=== PATIENT | female | born 1935 | race Hispanic/Latino ===

== ENCOUNTER 2020-04-18 00:02 | Inpatient (IN) | payer MEDICARE ==
[~2020-04-18] VITALS: Ht 147.3 cm; Wt 68.2 kg
[2020-04-18] MEDS ORDERED: PANTOPRAZOLE 40 MG/VIAL ONE (00:24)
[2020-04-18] MEDS ORDERED: FAMOTIDINE/PF 20 MG/2 ML VIAL IV ONE (00:25)
[2020-04-18] MEDS ORDERED: FUROSEMIDE 10 MG/ML 2ML VIAL ONE ×2 (00:51→21:06)
[2020-04-18] MEDS ORDERED: ASPIRIN 325 MG TABLET ONE (00:51)
[2020-04-18] MEDS ORDERED: METOCLOPRAMIDE 10 MG/2 ML VIAL ONE (00:51)
[2020-04-18 01:06] LABS: ALBUMIN 3.5 g/dL (3.5-5.0); BILIRUBIN,TOTAL 0.9 mg/dL (0.2-1.0); CREATININE 0.9 mg/dL (0.5-1.5); POTASSIUM 3.6 mmol/L (3.5-5.1); TOTAL PROTEIN, SERUM 8.1 g/dL (6.0-8.3)
[2020-04-18 01:12] LABS: BASOPHILS % (AUTO) 0.2 % (0.0-5.0); EOSINOPHILS % (AUTO) 0.6 % (0.0-8.0); HEMATOCRIT 33.7 % (36-48); LYMPHOCYTES % (AUTO) 27.4 % (21.0-51.0); MEAN CORPUSCULAR HEMOGLOBIN 32.9 pg (27.0-33.0); MEAN CORPUSCULAR HGB CONC 35.3 g/dL (32.0-36.0); MEAN CORPUSCULAR VOLUME 93.1 fL (79-99); MONOCYTES % (AUTO) 7.7 % (3.0-13.0); NEUTROPHILS % (AUTO) 63.6 % (40.0-77.0); PLATELET COUNT (AUTO) 182 K/uL (130-400); RED BLOOD CELL COUNT(AUTO) 3.62 MIL/uL (4.00-5.50); RED CELL DISTRIBUTION WIDTH 12.4 % (11.0-15.5); WHITE BLOOD COUNT (AUTO) 6.7 K/uL (4.8-10.8)
[2020-04-18] MEDS ORDERED: NITROGLYCERIN 0.4 MG SL TAB SL ONE (01:14)
[2020-04-18 01:19] LABS: INR 0.92 (0.85-1.15); PARTIAL THROMBOPLASTIN TIME 28.9 SEC (26.3-35.5)
[2020-04-18] MEDS ORDERED: ONDANSETRON HCL 4 MG/2 ML VIAL ONE (02:02)
[2020-04-18] MEDS ORDERED: MORPHINE SULFATE 2 MG/ML 1ML SYG ONE (02:02)
[2020-04-18 02:07] LABS: APPEARANCE,URINE Cloudy (CLEAR); BILIRUBIN,URINE Negative (NEGATIVE); COLOR,URINE Yellow (YELLOW); GLUCOSE, URINE (UA) Negative (NEGATIVE); KETONES,URINE Negative (NEGATIVE); LEUKOCYTE ESTERASE ,URINE Trace (NEGATIVE); NITRATE,URINE Negative (NEGATIVE); OCCULT BLOOD,URINE Small (NEGATIVE); PH,URINE 5.5 (5.0-8.0); PROTEIN,URINE POS 1+ mg/dL (NEGATIVE)
[2020-04-18 02:15] LABS: BACTERIA,URINE Moderate /HPF (None Seen); RBC,URINE None Seen /HPF (0-1); SQUAMOUS EPITHELIAL CELL,UR Rare /HPF (0-2); WBC,URINE 0-1 /HPF (0-1)
[2020-04-18] MEDS ORDERED: LACTULOSE 20 GM/30 ML UDCUP PO PRN (02:30)
[2020-04-18] MEDS ORDERED: HYDRALAZINE HCL 20 MG/ML VIAL IV PRN (02:30)
[2020-04-18] MEDS ORDERED: ONDANSETRON HCL 4 MG/2 ML VIAL IV PRN (02:30)
[2020-04-18] MEDS ORDERED: ACETAMINOPHEN 325 MG TAB PO PRN ×2 (02:30)
[2020-04-18 03:05] LABS: HEMOGLOBIN A1C 6.4 % (4.0-6.0)
[2020-04-18 03:23] LABS: THYROID STIMULATING HORMONE 1.34 uIU/mL (0.36-3.74)
--- NOTE | 2020-04-18 04:00 | NUR ---
Admission Assessment Received pt from ED with daughter Zena soliman, per cesilia.Routine admission assessment done, plan of care discuss, updated daughter with all lab works at this time, radiologic studies no official reading result, pending. Per daughter stated pt is oriented x3, ambulates with a walker at home, uses briefs as sometimes would have accident since pt is on Lasix, refused Flu & Pneumonia vaccination as pt has never had it at all, home medications obtained & recorded, pt calm & collect at this time. Per daughter pt would panic when not able to see familiar faces, but since pt is sleeping, per daughter she will be leaving & be back by around 0800 or 0900. Pt currently denies any discomfort.
[2020-04-18 04:05] VITALS: BP 155/88
[2020-04-18] MEDS ORDERED: FURO20TA4 PO (04:09)
[2020-04-18] MEDS ORDERED: ESOM40CA54 PO (04:09)
[2020-04-18] MEDS ORDERED: FOLI1TAB85 PO (04:09)
[2020-04-18] MEDS ORDERED: GABA-533 PO (04:09)
[2020-04-18] MEDS ORDERED: LOSA100T58 PO (04:09)
[2020-04-18] MEDS ORDERED: SIMV-46 PO (04:09)
[2020-04-18] MEDS ORDERED: LORA10TA7 PO (04:09)
[2020-04-18] MEDS: INSULIN HUMULIN R 100 UNIT/ML 3ML SQ SCH ×4 (05:39→21:00)
--- NOTE | 2020-04-18 06:00 | NUR ---
Re: CT of the abdomen/pelvis security systems technician Joe came to verify re: ordered CT of the abdomen/pelvis with contrast that was ordered in ED & still pending. Since this was not reported to me by Ted BEST, checked order noted in place, phoned daughter Zena, no answer, unable to leave VM as it's not set up, I will notify incoming shift of this issue, pending consent. Pt at this time has been NPO as ordered.
[2020-04-18 08:21] VITALS: BP 105/63
[2020-04-18] MEDS: GABAPENTIN 300 MG CAPSULE PO SCH ×3 (09:00→21:13)
[2020-04-18] MEDS: GABAPENTIN 100 MG CAPSULE PO SCH ×3 (09:00→21:13)
[2020-04-18] MEDS: LOSARTAN 100 MG TABLET PO SCH (09:00)
[2020-04-18] MEDS: ASPIRIN 325 MG TABLET PO SCH (09:00)
[2020-04-18] MEDS: SODIUM CHLORIDE 0.9% 1000ML 1,000 ML IV SCH ×2 (10:51→20:55)
[2020-04-18] MEDS: PANTOPRAZOLE SODIUM 40 MG TABLET.DR PO SCH (10:51)
[2020-04-18 11:37] VITALS: BP 113/83
[2020-04-18] MEDS: CEFTRIAXONE SODIUM 1 GM IVP SCH (13:11)
[2020-04-18 13:21] LABS: CREATININE 0.9 mg/dL (0.5-1.5); POTASSIUM 4.2 mmol/L (3.5-5.1)
[2020-04-18 16:00] VITALS: BP 114/50
--- NOTE | 2020-04-18 16:50 | NUR ---
INITIAL: Met w pt and dtr @ the bedside. Pt w confusion. Per dtr, prior to admission pt was using a rollator for ambulation. She required assistance w ADLS. SHe has at home a cane and sh chair. Zena mentions that [facility] at this time if is for pt to [facility]. She mentions that she will be able to assist pt as needed. CM to continue to follow and wait for Md recommendations. Addendum: 04/18/20 at 1652 by MIRANDA LINDA CM Amended: Links added.
[2020-04-18] MEDS: SIMVASTATIN 20 MG TABLET PO SCH (20:56)
[2020-04-18] MEDS ORDERED: FUROSEMIDE 10 MG/ML 2ML VIAL IV SCH (21:15)
[2020-04-18 21:45] VITALS: BP 118/57
--- NOTE | 2020-04-18 22:35 | NUR ---
2057: I paged Regina KNOWLES via answering service. 2108: Regina KNOWLES returned call informed him of change in patient's status. Patient with wheezing audible with stetascope. Informed him patient had been started on IVF of normal saline due to pateint's low sodium at 127. I received Orders to stop IVF, administer Lasix 20 mg IV now, and get a stat chest X ray. 2234: Regina KNOWLES came by to check on the patient, who had stopped wheezing after receiving lasix IV. He stated patient sounded better. Orders received to start normal saline at 50 mls/hr in the morning. Also to let Dr. Hansen know what happened and about the normal saline decrease to 50 mls/ hr.
[2020-04-18 23:58] VITALS: BP 122/56
--- NOTE | 2020-04-19 02:45 | NUR ---
0140: Patient's bed alarm went off checked on her, attempting to get out of bed. Fixed her back in bed and reoriented her to place and time, and reason why she was here. Patient's bed alarm placed back in use. 0150: I checked on patient, noted her attempting to bet out of bed again. Checked her diaper, she was wet, so incontinent care rendered. Patient fixed back in bed, she turned on her rt side. Bed alarm placed back in use. 0200: Patient yelling and bed alarm going off. Check on patient again attempting to get out of bed Patient moved to room 403 right in front of nurses station. Light turned on and tv, patient seem to be comforted patient asleep within a few minutes. Bed alarm placed in use.
[2020-04-19 04:00] VITALS: BP 121/90
[2020-04-19 05:58] LABS: BASOPHILS % (AUTO) 0.3 % (0.0-5.0); EOSINOPHILS % (AUTO) 0.7 % (0.0-8.0); HEMATOCRIT 30.5 % (36-48); LYMPHOCYTES % (AUTO) 22.5 % (21.0-51.0); MEAN CORPUSCULAR HEMOGLOBIN 32.3 pg (27.0-33.0); MEAN CORPUSCULAR HGB CONC 33.4 g/dL (32.0-36.0); MEAN CORPUSCULAR VOLUME 96.5 fL (79-99); MONOCYTES % (AUTO) 10.2 % (3.0-13.0); NEUTROPHILS % (AUTO) 66.2 % (40.0-77.0); PLATELET COUNT (AUTO) 163 K/uL (130-400); RED BLOOD CELL COUNT(AUTO) 3.16 MIL/uL (4.00-5.50); RED CELL DISTRIBUTION WIDTH 12.6 % (11.0-15.5); WHITE BLOOD COUNT (AUTO) 6.8 K/uL (4.8-10.8)
[2020-04-19 06:18] LABS: CREATININE 1.1 mg/dL (0.5-1.5); POTASSIUM 3.7 mmol/L (3.5-5.1)
[2020-04-19] MEDS: PANTOPRAZOLE SODIUM 40 MG TABLET.DR PO SCH (06:35)
[2020-04-19] MEDS: INSULIN HUMULIN R 100 UNIT/ML 3ML SQ SCH ×4 (06:35→20:06)
[2020-04-19 07:38] VITALS: BP 136/69
[2020-04-19] MEDS: SODIUM CHLORIDE 0.9% 1000ML 1,000 ML IV SCH (08:00)
--- NOTE | 2020-04-19 09:00 | NUR ---
FLUIDS PER DR REDDY, STATES TO HOLD FLUIDS FOR NOW
[2020-04-19] MEDS: ASPIRIN 325 MG TABLET PO SCH (09:49)
[2020-04-19] MEDS: GABAPENTIN 300 MG CAPSULE PO SCH ×3 (09:49→20:06)
[2020-04-19] MEDS: GABAPENTIN 100 MG CAPSULE PO SCH ×3 (09:49→20:05)
[2020-04-19] MEDS: LOSARTAN 100 MG TABLET PO SCH (09:49)
[2020-04-19 11:53] VITALS: BP 126/55
--- NOTE | 2020-04-19 12:45 | NUR ---
DR VALLE AWARE OF PULMONARY CONSULT, STATES WILL SEE PT
[2020-04-19] MEDS: CEFTRIAXONE SODIUM 1 GM IVP SCH (14:48)
[2020-04-19 16:27] VITALS: BP 140/69
[2020-04-19 20:05] VITALS: BP 142/74
[2020-04-19] MEDS: SIMVASTATIN 20 MG TABLET PO SCH (20:06)
[2020-04-20] VITALS (8 sets, daily range): BP systolic 131–166; BP diastolic 68–96
[2020-04-20] MEDS: SODIUM CHLORIDE 0.9% 1000ML 1,000 ML IV SCH (03:10)
[2020-04-20 06:03] LABS: HEMATOCRIT 33.2 % (36-48); MEAN CORPUSCULAR HEMOGLOBIN 32.4 pg (27.0-33.0); MEAN CORPUSCULAR HGB CONC 33.7 g/dL (32.0-36.0); RED BLOOD CELL COUNT(AUTO) 3.46 MIL/uL (4.00-5.50); RED CELL DISTRIBUTION WIDTH 12.8 % (11.0-15.5); WHITE BLOOD COUNT (AUTO) 6.3 K/uL (4.8-10.8)
[2020-04-20] MEDS: INSULIN HUMULIN R 100 UNIT/ML 3ML SQ SCH ×4 (06:19→21:00)
[2020-04-20] MEDS: PANTOPRAZOLE SODIUM 40 MG TABLET.DR PO SCH (06:19)
[2020-04-20 06:27] LABS: POTASSIUM 3.8 mmol/L (3.5-5.1); THYROID STIMULATING HORMONE 0.46 uIU/mL (0.36-3.74)
[2020-04-20] MEDS ORDERED: MEROPENEM 500 MG VIAL IVP SCH (08:15)
--- NOTE | 2020-04-20 08:15 | NUR ---
AM ASSESSMENT PT SITTING IN CHAIR, RESTING. PT'S DAUGHTER @ BEDSIDE. A/O X 3; FORGETFUL @ TIMES. SPA SPEAKING ONLY. NO SOB. NO DISTRESS NOTED. DENIES CHEST PAIN OR DISCOMFORT. DENIES PALPITATIONS. TELE: SR. DENIES N/V AND/OR DIARRHEA. C/O EPIGASTRIC PAIN; MD TO BE NOTIFIED. UP W/ASSISTANCE. INSTRUCTED TO CALL FOR ASSISTANCE. CALL JOSE ALBERTO W/IN REACH.
[2020-04-20] MEDS ORDERED: CEFTRIAXONE SODIUM 1 GM IVP SCH (09:00)
[2020-04-20] MEDS: GABAPENTIN 300 MG CAPSULE PO SCH ×3 (09:07→21:40)
[2020-04-20] MEDS: ASPIRIN 81 MG EC TAB PO SCH (09:08)
[2020-04-20] MEDS: GABAPENTIN 100 MG CAPSULE PO SCH ×3 (09:08→21:41)
[2020-04-20] MEDS: LOSARTAN 100 MG TABLET PO SCH (09:09)
[2020-04-20] MEDS: MEROPENEM 500 MG VIAL IVP SCH ×3 (09:10→21:40)
[2020-04-20 11:03] LABS: ALBUMIN 3.2 g/dL (3.5-5.0); BILIRUBIN,TOTAL 0.5 mg/dL (0.2-1.0); CREATININE 1.1 mg/dL (0.5-1.5); POTASSIUM 4.4 mmol/L (3.5-5.1)
[2020-04-20] MEDS: KETOROLAC TROMETHAMINE 15MG/ML IV PRN (12:36)
[2020-04-20] MEDS ORDERED: PHARMACY COMMUNICATION MISC SCH (13:30)
[2020-04-20] MEDS ORDERED: COMPOUND IV MISC 1 EACH IVSOLN MISC PRN (13:45)
[2020-04-20] MEDS: ACETAMINOPHEN-CODEINE 300/30MG TAB PO PRN (13:59)
[2020-04-20] MEDS ORDERED: SODIUM CHLORIDE 0.9% 50 ML IV ONE (21:36)
[2020-04-20] MEDS: IRON SUCROSE COMPLEX 300 MG in SODIUM CHLORIDE 0.9% 250 ML IVP SCH (21:40)
[2020-04-20] MEDS: SIMVASTATIN 20 MG TABLET PO SCH (21:41)
[2020-04-21] VITALS (7 sets, daily range): BP systolic 133–166; BP diastolic 73–93
[2020-04-21] MEDS: SODIUM CHLORIDE 0.9% 1000ML 1,000 ML IV SCH
[2020-04-21] MEDS ORDERED: SODIUM CHLORIDE 0.9% 50 ML IV ONE (04:32)
[2020-04-21] MEDS: MEROPENEM 500 MG VIAL IVP SCH ×3 (05:12→22:35)
[2020-04-21 05:38] LABS: HEMATOCRIT 33.7 % (36-48); MEAN CORPUSCULAR HEMOGLOBIN 32.4 pg (27.0-33.0); MEAN CORPUSCULAR HGB CONC 33.5 g/dL (32.0-36.0); MEAN CORPUSCULAR VOLUME 96.6 fL (79-99); RED BLOOD CELL COUNT(AUTO) 3.49 MIL/uL (4.00-5.50); RED CELL DISTRIBUTION WIDTH 12.8 % (11.0-15.5); WHITE BLOOD COUNT (AUTO) 5.6 K/uL (4.8-10.8)
[2020-04-21 05:52] LABS: INR 0.94 (0.85-1.15); PARTIAL THROMBOPLASTIN TIME 34.2 SEC (26.3-35.5); PROTHROMBIN TIME 10.2 SEC (9.6-11.6)
[2020-04-21 06:02] LABS: CREATININE 0.8 mg/dL (0.5-1.5); POTASSIUM 4.3 mmol/L (3.5-5.1)
[2020-04-21] MEDS: INSULIN HUMULIN R 100 UNIT/ML 3ML SQ SCH (06:08)
[2020-04-21] MEDS: PANTOPRAZOLE SODIUM 40 MG TABLET.DR PO SCH (06:18)
[2020-04-21] MEDS: GABAPENTIN 100 MG CAPSULE PO SCH ×3 (09:38→19:55)
[2020-04-21] MEDS: GABAPENTIN 300 MG CAPSULE PO SCH ×3 (09:38→19:55)
[2020-04-21] MEDS: ASPIRIN 81 MG EC TAB PO SCH (09:38)
[2020-04-21] MEDS: LOSARTAN 100 MG TABLET PO SCH (09:39)
--- NOTE | 2020-04-21 11:55 | NUR ---
a rt basilic picc line was inserted via rt basilic vein using [employer] technician. unable to obtain bulls eyes, chest x ray ordered. pt. tolerated procedure without c/o distress . internal cath at 34 cm ,external cath 2 cm,total cath 36cm. no trauma noted. Addendum: 04/21/20 at 1216 by RAHEL ESTRADA RN RN Amended: Links added.
[2020-04-21] MEDS: ACETAMINOPHEN-CODEINE 300/30MG TAB PO PRN (19:32)
[2020-04-21] MEDS: SIMVASTATIN 20 MG TABLET PO SCH (19:56)
[2020-04-21] MEDS: IRON SUCROSE COMPLEX 300 MG in SODIUM CHLORIDE 0.9% 250 ML IVP SCH (19:56)
--- NOTE | 2020-04-21 20:00 | NUR ---
ASSESSMENT NOTE PATIENT AWAKE, ALERT, OX3, NO SOB, NO C/O PAIN AT THIS TIME, REINFORCE FLUID RESTRICTION 1.5 LITERS, TEACH PATIENT PLAN OF CARE AND EXPECTED OUTCOME, PATIENT VERBALIZES UNDERSTANDING VIA TEACH BACK
[2020-04-22] VITALS: BP 126/76
[2020-04-22 04:00] VITALS: BP 128/73
[2020-04-22] MEDS: SODIUM CHLORIDE 0.9% 1000ML 1,000 ML IV SCH (04:07)
[2020-04-22 04:42] LABS: HEMATOCRIT 32.4 % (36-48); MEAN CORPUSCULAR HEMOGLOBIN 32.9 pg (27.0-33.0); RED BLOOD CELL COUNT(AUTO) 3.34 MIL/uL (4.00-5.50); RED CELL DISTRIBUTION WIDTH 13.1 % (11.0-15.5)
[2020-04-22 05:04] LABS: CREATININE 0.7 mg/dL (0.5-1.5); POTASSIUM 4.8 mmol/L (3.5-5.1)
[2020-04-22] MEDS: MEROPENEM 500 MG VIAL IVP SCH ×3 (05:10→20:52)
[2020-04-22] MEDS: PANTOPRAZOLE SODIUM 40 MG TABLET.DR PO SCH (06:07)
[2020-04-22 08:00] VITALS: BP 172/100
--- NOTE | 2020-04-22 09:34 | NUR ---
recd trigger to discuss dcp w dtr- met at bedside, discussed dc needs, depend on final ABX RX, will follow up as soon at that is recd, verbalized understanding Addendum: 04/22/20 at 0937 by WAYNE PEPPER RN CM Amended: Links added.
[2020-04-22] MEDS: GABAPENTIN 100 MG CAPSULE PO SCH ×3 (09:47→20:53)
[2020-04-22] MEDS: ASPIRIN 81 MG EC TAB PO SCH (09:49)
[2020-04-22] MEDS: LOSARTAN 100 MG TABLET PO SCH (09:49)
[2020-04-22] MEDS: GABAPENTIN 300 MG CAPSULE PO SCH ×3 (09:49→20:53)
[2020-04-22] MEDS: ACETAMINOPHEN-CODEINE 300/30MG TAB PO PRN (09:52)
[2020-04-22] MEDS ORDERED: AMLODIPINE BESYLATE 5 MG TAB PO SCH (11:15)
[2020-04-22] MEDS: PANTOPRAZOLE 40 MG/VIAL IVP SCH ×2 (11:30→20:52)
[2020-04-22 12:00] VITALS: BP 159/78
[2020-04-22] MEDS ORDERED: TRAMADOL HCL 50 MG TABLET PO ONE (14:07)
[2020-04-22 16:00] VITALS: BP 152/74
[2020-04-22] MEDS ORDERED: FUROSEMIDE 10 MG/ML 4ML VIAL IVP SCH (16:30)
[2020-04-22] MEDS ORDERED: TRAMADOL HCL 50 MG TABLET ONE (17:35)
[2020-04-22] MEDS: BUDESONIDE 0.5 MG/2 ML INH IH SCH (18:00)
[2020-04-22] MEDS: IPRATROPIUM 0.5 MG/2.5 ML INH IH SCH (18:00)
[2020-04-22] MEDS ORDERED: ALBUTEROL SULFATE 0.083% 2.5 MG/3 ML INH IH SCH (18:00)
[2020-04-22] MEDS: KETOROLAC TROMETHAMINE 15MG/ML IV PRN (18:39)
[2020-04-22 20:00] VITALS: BP 148/82
[2020-04-22] MEDS: SIMVASTATIN 20 MG TABLET PO SCH (20:52)
[2020-04-22] MEDS: IRON SUCROSE COMPLEX 300 MG in SODIUM CHLORIDE 0.9% 250 ML IVP SCH (20:52)
[2020-04-22] MEDS: ALBUTEROL INHALER 90MCG/INH IH SCH (23:13)
[2020-04-22] MEDS: FUROSEMIDE 10 MG/ML 2ML VIAL IVP SCH (23:13)
[2020-04-23] VITALS (9 sets, daily range): BP systolic 132–157; BP diastolic 64–87
[2020-04-23] MEDS: MEROPENEM 500 MG VIAL IVP SCH ×3 (05:11→21:37)
[2020-04-23] MEDS: FUROSEMIDE 10 MG/ML 2ML VIAL IVP SCH ×3 (05:12→21:41)
[2020-04-23] MEDS: ALBUTEROL INHALER 90MCG/INH IH SCH ×3 (05:12→17:11)
[2020-04-23] MEDS: IPRATROPIUM 0.5 MG/2.5 ML INH IH SCH ×3 (05:31→12:00)
[2020-04-23] MEDS: BUDESONIDE 0.5 MG/2 ML INH IH SCH (05:32)
[2020-04-23 06:26] LABS: BASOPHILS % (AUTO) 0.3 % (0.0-5.0); EOSINOPHILS % (AUTO) 2.7 % (0.0-8.0); HEMATOCRIT 34.3 % (36-48); LYMPHOCYTES % (AUTO) 26.2 % (21.0-51.0); MEAN CORPUSCULAR HEMOGLOBIN 32.9 pg (27.0-33.0); MEAN CORPUSCULAR HGB CONC 33.2 g/dL (32.0-36.0); MEAN CORPUSCULAR VOLUME 98.8 fL (79-99); MONOCYTES % (AUTO) 9.6 % (3.0-13.0); NEUTROPHILS % (AUTO) 60.9 % (40.0-77.0); PLATELET COUNT (AUTO) 185 K/uL (130-400); RED BLOOD CELL COUNT(AUTO) 3.47 MIL/uL (4.00-5.50); RED CELL DISTRIBUTION WIDTH 13.2 % (11.0-15.5); WHITE BLOOD COUNT (AUTO) 6.4 K/uL (4.8-10.8)
[2020-04-23 06:38] LABS: CREATININE 0.9 mg/dL (0.5-1.5)
[2020-04-23 06:57] LABS: B-TYPE NATRIURETIC PEPTIDE 249 pg/mL (0-100)
[2020-04-23] MEDS: ASPIRIN 81 MG EC TAB PO SCH (09:00)
[2020-04-23] MEDS: GABAPENTIN 300 MG CAPSULE PO SCH ×3 (09:00→20:22)
[2020-04-23] MEDS: PANTOPRAZOLE 40 MG/VIAL IVP SCH ×3 (09:00→20:22)
[2020-04-23] MEDS: GABAPENTIN 100 MG CAPSULE PO SCH ×3 (09:00→20:22)
[2020-04-23] MEDS: LOSARTAN 100 MG TABLET PO SCH (09:00)
[2020-04-23] MEDS ORDERED: KETOROLAC TROMETHAMINE 30MG/ML ONE (10:00)
[2020-04-23] MEDS ORDERED: KETOROLAC TROMETHAMINE 30MG/ML IV PRN (14:15)
[2020-04-23 14:53] LABS: TROPONIN I 0.08 ng/mL (0.00-0.06)
[2020-04-23] MEDS ORDERED: HYDROMORPHONE HCL 0.5 MG/0.5 ML ML IVP PRN (17:00)
[2020-04-23] MEDS ORDERED: HYDROMORPHONE HCL 0.5 MG/0.5 ML ML ONE (17:02)
[2020-04-23] MEDS: SIMVASTATIN 20 MG TABLET PO SCH (20:22)
[2020-04-24 03:56] VITALS: BP 141/73
[2020-04-24] MEDS: MEROPENEM 500 MG VIAL IVP SCH ×3 (05:20→20:01)
[2020-04-24] MEDS: FUROSEMIDE 10 MG/ML 2ML VIAL IVP SCH ×3 (05:20→20:00)
[2020-04-24 06:00] LABS: HEMATOCRIT 35.6 % (36-48); MEAN CORPUSCULAR HEMOGLOBIN 32.5 pg (27.0-33.0); MEAN CORPUSCULAR HGB CONC 33.4 g/dL (32.0-36.0); MEAN CORPUSCULAR VOLUME 97.3 fL (79-99); RED BLOOD CELL COUNT(AUTO) 3.66 MIL/uL (4.00-5.50); RED CELL DISTRIBUTION WIDTH 13.2 % (11.0-15.5); WHITE BLOOD COUNT (AUTO) 7.1 K/uL (4.8-10.8)
[2020-04-24] MEDS: ALBUTEROL INHALER 90MCG/INH IH SCH ×4 (06:00→18:00)
[2020-04-24 06:08] LABS: POTASSIUM 3.9 mmol/L (3.5-5.1)
[2020-04-24 08:32] VITALS: BP 150/89
[2020-04-24] MEDS: PANTOPRAZOLE 40 MG/VIAL IVP SCH ×2 (10:21→20:01)
[2020-04-24] MEDS: ASPIRIN 81 MG EC TAB PO SCH (10:22)
[2020-04-24] MEDS: GABAPENTIN 300 MG CAPSULE PO SCH ×3 (10:22→20:00)
[2020-04-24] MEDS: GABAPENTIN 100 MG CAPSULE PO SCH ×3 (10:22→20:01)
[2020-04-24] MEDS: LOSARTAN 100 MG TABLET PO SCH (10:22)
[2020-04-24 12:34] VITALS: BP 146/78
[2020-04-24 16:00] VITALS: BP 137/81
[2020-04-24 20:00] VITALS: BP 136/62
[2020-04-24] MEDS: SIMVASTATIN 20 MG TABLET PO SCH (20:01)
[2020-04-24] MEDS: ENOXAPARIN SODIUM 30 MG/0.3 ML SQ SCH (20:02)
[2020-04-25] VITALS (20 sets, daily range): BP systolic 104–165; BP diastolic 52–87
[2020-04-25] MEDS: MEROPENEM 500 MG VIAL IVP SCH ×3 (05:29→21:23)
[2020-04-25] MEDS: FUROSEMIDE 10 MG/ML 2ML VIAL IVP SCH ×2 (05:30→14:00)
[2020-04-25 06:05] LABS: CREATININE 1.2 mg/dL (0.5-1.5); MAGNESIUM 1.7 mg/dL (1.80-2.40)
[2020-04-25] MEDS: GABAPENTIN 300 MG CAPSULE PO SCH ×2 (09:00→12:29)
[2020-04-25] MEDS: GABAPENTIN 100 MG CAPSULE PO SCH ×2 (09:00→12:29)
[2020-04-25] MEDS: ENOXAPARIN SODIUM 30 MG/0.3 ML SQ SCH (09:00)
--- NOTE | 2020-04-25 09:25 | NUR ---
HOLD TODAY SECONDARY TO PATIENT SEDATED POST EGD. Addendum: 04/25/20 at 1210 by LUKE MOORE PT Amended: Links added.
[2020-04-25] MEDS: PANTOPRAZOLE 40 MG/VIAL IVP SCH ×2 (10:57→19:52)
[2020-04-25] MEDS: LIPASE/PROTEASE/AMYLASE 5000/17000/24000 PO SCH ×2 (10:57→16:46)
[2020-04-25] MEDS: PREGABALIN 25 MG CAP PO SCH ×2 (10:58→19:51)
[2020-04-25] MEDS: ASPIRIN 81 MG EC TAB PO SCH (10:58)
[2020-04-25] MEDS: LOSARTAN 100 MG TABLET PO SCH (10:58)
[2020-04-25] MEDS: ALBUTEROL INHALER 90MCG/INH IH SCH ×2 (12:00→16:47)
[2020-04-25] MEDS ORDERED: MAGNESIUM 2GM PREMIX 50ML 50 ML IV PRN (14:45)
[2020-04-25] MEDS: SIMVASTATIN 20 MG TABLET PO SCH (19:51)
[2020-04-26] VITALS: BP 139/50
[2020-04-26] MEDS ORDERED: ALBUTEROL INHALER 90MCG/INH IH PRN (00:30)
[2020-04-26] MEDS ORDERED: IPRATROPIUM 0.5 MG/2.5 ML INH IH PRN (03:00)
[2020-04-26 04:00] VITALS: BP 135/73
--- NOTE | 2020-04-26 05:00 | NUR ---
ROUNDS PATIENT UP TO CHAIR, DAUGHTER AT BEDSIDE. NO COMPLAINTS OF PAIN VOICED AT THIS TIME. RESP EVEN AND UNLABORED. NO SOB NOTED. VITALS STABLE. AFEBRILE. TOTAL CARE RENDERED Q2H AND PRN. BM NOTED. NO SIGNS OF DISTRESS NOTED. CALL LIGHT WITHIN REACH. WILL CONTINUE TO BE OBSERVED. Addendum: 04/26/20 at 0633 by WISAM DURAN RN RN Amended: Links added.
[2020-04-26] MEDS: MEROPENEM 500 MG VIAL IVP SCH ×2 (05:18→14:00)
[2020-04-26] MEDS: LIPASE/PROTEASE/AMYLASE 5000/17000/24000 PO SCH ×3 (05:19→16:00)
[2020-04-26 06:10] LABS: HEMATOCRIT 37.1 % (36-48); MEAN CORPUSCULAR HGB CONC 33.2 g/dL (32.0-36.0); MEAN CORPUSCULAR VOLUME 99.5 fL (79-99); RED BLOOD CELL COUNT(AUTO) 3.73 MIL/uL (4.00-5.50); RED CELL DISTRIBUTION WIDTH 13.6 % (11.0-15.5)
[2020-04-26 06:23] LABS: CREATININE 1.2 mg/dL (0.5-1.5); MAGNESIUM 2.6 mg/dL (1.80-2.40); POTASSIUM 3.8 mmol/L (3.5-5.1)
[2020-04-26 08:00] VITALS: BP 136/82
[2020-04-26] MEDS: ENOXAPARIN SODIUM 30 MG/0.3 ML SQ SCH (09:36)
[2020-04-26] MEDS: PANTOPRAZOLE 40 MG/VIAL IVP SCH (09:36)
[2020-04-26] MEDS: PREGABALIN 25 MG CAP PO SCH (09:37)
[2020-04-26] MEDS: ASPIRIN 81 MG EC TAB PO SCH (09:37)
[2020-04-26] MEDS: LOSARTAN 100 MG TABLET PO SCH (09:38)
[2020-04-26] MEDS ORDERED: FLUTICASONE/VILANTEROL 1 EACH BLST.W.DEV IH SCH (11:00)
--- NOTE | 2020-04-26 11:00 | NUR ---
CM Note: [facility] pending approval CM met with pt and daughter in room, discussed MD recommendations, pt will need 5 more days abx iv. Daughter agreeable, signed KENNETH for [facility]. Faxed order, clinicals, PAS[facility], Covid transfer form and result from 04/22, confirmation received. Spoke to Breonna rothman/JIMMIE, aware dcp once approved, will come eval pt. Pt pending approval and acceptance. EMS filled out, request sent to [facility] in case needed, pending auth. Primary nurse Yaneli BEST aware. CM to continue to follow up.
[2020-04-26] MEDS ORDERED: ACETAMINOPHEN-CODEINE 300/30MG TAB PO PRN (11:15)
[2020-04-26 12:00] VITALS: BP 145/76
[2020-04-26] MEDS ORDERED: FLUT1BLS IH (12:58)
[2020-04-26] MEDS ORDERED: ALBUHFA IH (12:58)
[2020-04-26] MEDS ORDERED: Lipase/Protease/Amylase PO (12:58)
[2020-04-26] MEDS ORDERED: PREG25 PO (12:58)
--- NOTE | 2020-04-26 14:07 | NUR ---
i called at 1415 to make an appointment with pt's pcp nasrin mendoza but her office had message the office was closed and to call back later for appointment; I will instruct pt's daughter to call later and make a f/u appointment.
--- NOTE | 2020-04-26 15:00 | NUR ---
CM Note: HNR cancelled, dcp to home CM spoke to Dr Garcia, as per Dr Greene pt will no longer need abx iv on dc will dc to home instead. Per cancell HNR referal, dc order placed for home. Spoke to Breonna rothman/JIMMIE, cancelled referral. Primary nurse Yaneli BEST aware. CM to continue to follow up.
--- NOTE | 2020-04-26 16:04 | NUR ---
D/C PAPERS COMPLETE AND GIVEN TO PATIENT AND DAUGHTER AT BEDSIDE WHO TAKES CARE OF HER; I HAVE ALSO REMOVED THE PICC LINE IN PLACE IN RIGHT ARM ORDERED, TIP IS INTACT, NO RESISTANCE MET WHILE REMOVING LINE, NO BLEEDING NOTED AFTER REMOVAL, INSERTION SITE NORMAL IN APPEARANCE---PRESSURE HELD FOR 5 MINUTES THEN GAUZE DRESSING W/ OPSITE COVERING APPLIED; PT AND DAUGHTER STATED UNDERSTANDING OF ALL D/C INSTRUCTIONS INCLUDING TO CALL FOR F/U WITH BELKIS FIGUEROA, TAKE NEW MEDICATIONS PRESCRIBED AND SEE CHANGES MADE TO PREVIOUS HOME MEDICATIONS; TO CALL MD FOR ANY QUESTIONS OR CONCERNS AND CALL 911 OR GO TO ED FOR ANY LIFE THREATENING CONCERNS;
[2020-04-26] MEDS ORDERED: BUDESONIDE 0.5 MG/2 ML INH IH SCH (18:00)
[2020-04-27] MEDS ORDERED: PANTOPRAZOLE SODIUM 40 MG TABLET.DR PO SCH (09:00)
--- NOTE | 2020-04-28 11:29 | NUR ---
Transitional Care - Post Discharge Note Spoke with patient's daughter at number listed. As per daughter, patient is doing well. She states she has a follow up with her PCP tomorrow, and is taking discharge medications as ordered. The patient was unable to fill one medication ([id number]) because it is not covered by the insurance. The daughter of the patient will inquire with the PCP about this medication or something similar at follow up appointment. Addendum: 04/28/20 at 1134 by BEN DWYER Amended: Links added.
== END 2020-04-26 16:23 | disposition home or self-care (01) | DRG 438 ==
LOC: EDH 00:02 → EDHIP 02:21 → OBSVTOIN 02:21 → 4BH 03:57 → 4AH 04-19 02:06
PROVIDERS: ADMIT Internal Medicine; ATTEND Internal Medicine
PROC: 02HV33Z Insertion of Infusion Device into Superior Vena Cava, Percutaneous Approach (ICD-10-PCS; principal; 2020-04-21)
PROC: 0DB68ZX Excision of Stomach, Via Natural or Artificial Opening Endoscopic, Diagnostic (ICD-10-PCS; 2020-04-25)
DX: K85.90 Acute pancreatitis without necrosis or infection, unspecified (principal); J96.01 Acute respiratory failure with hypoxia; I21.A1 Myocardial infarction type 2; E87.1 Hypo-osmolality and hyponatremia; N39.0 Urinary tract infection, site not specified; J44.1 Chronic obstructive pulmonary disease with (acute) exacerbation; J98.11 Atelectasis; M48.54XA Collapsed vertebra, not elsewhere classified, thoracic region, initial encounter for fracture; Z16.12 Extended spectrum beta lactamase (ESBL) resistance; Z16.24 Resistance to multiple antibiotics; I50.22 Chronic systolic (congestive) heart failure; K86.1 Other chronic pancreatitis; I44.7 Left bundle-branch block, unspecified; K57.30 Diverticulosis of large intestine without perforation or abscess without bleeding; B96.20 Unspecified Escherichia coli [E. coli] as the cause of diseases classified elsewhere; D50.9 Iron deficiency anemia, unspecified; E11.9 Type 2 diabetes mellitus without complications; E66.9 Obesity, unspecified; E78.00 Pure hypercholesterolemia, unspecified; E78.5 Hyperlipidemia, unspecified; E86.1 Hypovolemia; F03.90 Unspecified dementia, unspecified severity, without behavioral disturbance, psychotic disturbance, mood disturbance, and anxiety; I25.10 Atherosclerotic heart disease of native coronary artery without angina pectoris; K42.9 Umbilical hernia without obstruction or gangrene; K44.9 Diaphragmatic hernia without obstruction or gangrene; K74.60 Unspecified cirrhosis of liver; K82.8 Other specified diseases of gallbladder; Z96.642 Presence of left artificial hip joint; R53.81 Other malaise; I08.3 Combined rheumatic disorders of mitral, aortic and tricuspid valves; M19.90 Unspecified osteoarthritis, unspecified site; N26.1 Atrophy of kidney (terminal); Z74.01 Bed confinement status; Z79.899 Other long term (current) drug therapy; Z90.710 Acquired absence of both cervix and uterus; Z68.31 Body mass index [BMI] 31.0-31.9, adult; Z20.828 Contact with and (suspected) exposure to other viral communicable diseases
CPT/HCPCS: 36415; 43239; 70450; 71045; 74176; 76705; 78226; 80048; 80053; 80061; 81001; 82140; 82150; 82550; 82728; 82948; 83036; 83540; 83550; 83605; 83690; 83735; 83874; 83880; 83930; 83935; 84300; 84443; 84484; 84550; 85025; 85027; 85610; 85730; 87040; 87077; 87088; 87186; 87426; 93005; 93306; 94664; 97039; A4606; A9537; C1894; C9113; G0378; J0696; J1170; J1650; J1756; J1885; J1940; J2185; J2405; J2765; J3475; J3490; J7030; J7050; U0003